=== PATIENT | female | born 2000 | race Caucasian/White ===

== ENCOUNTER 2023-04-13 22:25 | Emergency (ER) | payer BC ==
[~2023-04-13] VITALS: Ht 167.6 cm; Wt 75.3 kg
[2023-04-13 23:01] VITALS: O2SAT 100
[2023-04-14] MEDS ORDERED: IBUPROFEN 600MG TABLET PO ONE
[2023-04-14 01:15] VITALS: BP 129/89
[2023-04-14] MEDS ORDERED: KETOROLAC 60MG/2ML VIAL IM ONE (01:15)
[2023-04-14] MEDS ORDERED: IBUP-2029 MT (01:16)
[2023-04-14 01:34] VITALS: PULSE 97; RESP 18; TEMP 98.7
== END 2023-04-14 01:37 | disposition home or self-care (01) ==
LOC: ER 22:25
DX: S43.101A Unspecified dislocation of right acromioclavicular joint, initial encounter (principal); W18.39XA Other fall on same level, initial encounter; Y93.89 Activity, other specified; Y92.89 Other specified places as the place of occurrence of the external cause; Y99.8 Other external cause status
CPT/HCPCS: 99285; 71045; 81025; 73030; J1885; A4565